=== PATIENT | female | born 1950 | race Caucasian/White ===

== ENCOUNTER → 2018-01-21 | Outpatient (CLI) | payer MEDICARE, BC | LOC: MC.RAD 12-09 10:40 | DX: Z12.31 Encounter for screening mammogram for malignant neoplasm of breast (principal) ==

== ENCOUNTER → 2020-02-16 | Outpatient (CLI) | payer MEDICARE, BC | LOC: MC.RAD 02-09 11:30 | DX: Z12.31 Encounter for screening mammogram for malignant neoplasm of breast (principal) ==

== ENCOUNTER → 2022-05-08 | Outpatient (CLI) | payer MEDICARE, BC ==
[~2022-05-08] MED LIST: AMBIEN 10MG10 MG PO; ATROVENT I0.2 MG/1 M IH; CARAFATE 1GM1 G PO; COZAAR100 MG PO; GLUCOPHAGE XR500 M1 PO; HCTZ 25MG TAB25 MG PO; LIPITOR 80MG80 MG PO; LIPITOR20 MG PO; PEPCID 20MG TAB20 MG PO; PLAVIX 75MG TAB75 MG PO; PRILOSEC 20MG20 MG PO; PROAIR HFA0.09 MG/AC IH; REGLAN 5MG T5 MG/TAB PO; TOPROL XL 25MG25 MG PO; TYLENOL 500MG500 MG PO; WELLBUTRIN XL150 MG; WELLBUTRIN XL300 M1 PO; ZITHROMAX 250M250 MG PO
== END ==
LOC: MC.RAD 12:44
DX: Z12.31 Encounter for screening mammogram for malignant neoplasm of breast (principal)